=== PATIENT | male | born 1935 | race Caucasian/White ===

== ENCOUNTER 2017-03-21 22:04 | Emergency (ER) | payer MEDICARE ==
[~2017-03-21] VITALS: Ht 177.8 cm; Wt 59.0 kg
[~2017-03-21 22:04] MED LIST: ASP81CT PO; ATEN25TA PO; CLON-378 PO; HCTZ12.5T GT; HYDR-3156 PO; LISI1TAB PO; LISI40TA PO; LOVA20TA2 PO; METO100T2 PO; MTF500T PO; VERA120T6 PO
[2017-03-21] MEDS ORDERED: cefTRIAXone 1 GM (ROCEPHIN) VIAL IM ONE (22:30)
[2017-03-21] MEDS ORDERED: LIDOCAINE 1% INJ 20 ML (XYLOCAINE) VIAL INJ ONE (22:30)
[2017-03-21] MEDS ORDERED: TETANUS,DIPTH,PERTUSS P/F (BOOSTRIX) 0.5 ML VIAL IM ONE (22:30)
--- NOTE | 2017-03-21 22:34 | ED Integumentary General ---
General Chief Complaint: Skin/Wound Problems Stated Complaint: R HAND SCRATCH ON NUCKLE, SWELLING Nursing Triage Note: PT TO ED 5 W/ C/O ABRASION TO RT HAND 1ST KNUCKLE ONSET AT "" THIS EVENING WHILE WORKING ON HIS TRUCK. REPORTS THE SWELLING BEGAN PRIOR TO COMING TO ED. NO OTHER C/O VOICED Source: patient Exam Limitations: no limitations History of Present Illness Time seen by provider: 22:32 Initial Comments To ER with a laceration to the dorsal aspect of the proximal phalanx of the right pointer finger. Patient states that he was working on his truck this evening when he looked down and noticed some blood. He is unsure what exactly he may have scratched this on. He has been swelling at the site and that concerned him Timing/Duration: just prior to arrival Severity: mild Associated Symptoms: denies symptoms Allergies and Home Medications Allergies Coded Allergies: No Known Drug Allergies (Unverified , 10/15/11) Home Medications Aspirin 81 Mg Chew, 81 MG PO DAILY, (Reported) Atenolol 25 Mg Tablet, 25 MG PO BID, (Reported) Hydralazine Hcl 25 Mg Tablet, 1 EACH PO DAILY, (Reported) Hydrochlorothiazide 12.5 Mg Cap, 25 MG GT DAILY, (Reported) Lisinopril 40 Mg Tablet, 40 MG PO BID, (Reported) Lovastatin 20 Mg Tablet, 20 MG PO DAILY, (Reported) Metformin Hcl 500 Mg Tablet, 500 MG PO BID WITH MEALS, (Reported) resume saturday, october 19, 2011 Metoprolol Tartrate 100 Mg Tablet, 100 MG PO BID, (Reported) Verapamil Hcl 120 Mg Tablet, 120 MG PO BID, (Reported) Constitutional: see HPI EENTM: see HPI Respiratory: no symptoms reported Cardiovascular: no symptoms reported Genitourinary: no symptoms reported Musculoskeletal: no symptoms reported Skin: see HPI Psychiatric/Neurological: No Symptoms Reported Endocrine: No Symptoms Reported Past Aarywjc-Sgoaax-Fhksqc Hx Patient Social History Alcohol Use: Occasionally Uses Recreational Drug Use: No Smoking Status: Never a Smoker Recent Foreign Travel: No Contact w/Someone Who Travel: No Recent Infectious Disease Expo: No Recent Hopitalizations: Yes (low blood glucose) Immunizations Up To Date Date of Pneumonia Vaccine: Jul 03, 2011 Date of Influenza Vaccine: Jul 03, 2011 Seasonal Allergies Seasonal Allergies: No Surgeries HX Surgeries: Yes (CAROTID LEFT) Surgeries: Eye Surgery, Tonsillectomy Respiratory Hx Respiratory Disorders: No Cardiovascular Hx Cardiac Disorders: Yes Cardiac Disorders: Hypertension Neurological Hx Neurological Disorders: No Reproductive System Hx Reproductive Disorders: No Genitourinary Hx Genitourinary Disorders: No Gastrointestinal Hx Gastrointestinal Disorders: No Musculoskeletal Hx Musculoskeletal Disorders: Yes Endocrine Hx Endocrine Disorders: Yes Endocrine Disorders: Diabetes, Non-Insulin dep HEENT HX ENT Disorders: Yes HEENT Disorders: Cataract Cancer Hx Cancer: No Psychosocial Hx Psychiatric Problems: No Integumentary HX Skin/Integumentary Disorder: No Blood Transfusions Hx Blood Disorders: No Physical Exam Vital Signs Vital Sign - Last 12Hours 03/21/17 22:11 Temp 97.6 Pulse 64 Resp 20 B/P (MAP) 188/68 Pulse Ox 99 O2 Delivery Room Air Capillary Refill : Less Than 3 Seconds General Appearance: WD/WN, no apparent distress HEENT: PERRL/EOMI, normal ENT inspection Respiratory: no respiratory distress, no accessory muscle use Gastrointestinal: non tender, soft Neurologic/Psychiatric: alert, normal mood/affect, oriented x 3 Skin: normal color, warm/dry Skin Problem Location: upper extremities Skin Problem Character: other (0.5 semi-laceration with depth is a cutaneous tissues to the dorsal aspect of the right pointer finger at the proximal phalanx. There is erythema surrounding this to the mid aspect of the right hand.) Progress/Results/Core Measures Results/Orders My Orders Orders - OLIVA GUZMAN APRN Ceftriaxone Injection (Rocephin Injectio (03/21/17 22:30) Lidocaine 1% Injection (Xylocaine 1% Inj (03/21/17 22:30) Dipht,Pertuss(Acell),Tet Adult (Boostrix (03/21/17 22:30) Vital Signs/I&O Vital Sign - Last 12Hours 03/21/17 22:11 Temp 97.6 Pulse 64 Resp 20 B/P (MAP) 188/68 Pulse Ox 99 O2 Delivery Room Air Blood Pressure Mean: 108 Departure Impression Impression: Primary Impression: Laceration of hand Additional Impression: Erythema of hand Disposition: 01 HOME, SELF-CARE Condition: Stable (all) Departure-Patient Inst. Decision time for Depature: 22:34 Referrals: BUD CONNELLY DO (PCP/Family) Primary Care Physician Patient Instructions: Cellulitis (Skin Infection), Adult (DC) Add. Discharge Instructions: 1. Take and biotics as directed 2. Call Dr. Dr. Connelly tomorrow to make an appointment to be seen 3. Return to ER for any worsening such as increasing redness swelling or fevers All discharge instructions reviewed with patient and/or family. Voiced understanding. Scripts Amoxicillin/Potassium Clav (Augmentin 500-125 Tablet) 1 Each Tablet 1 EACH PO BID, #14 TAB Prov: OLIVA GUZMAN APRN 03/21/17 Copy Copies To 1: BUD CONNELLY PETER J APRN Mar 21, 2017 22:34
[2017-03-21] MEDS ORDERED: AMOX-355 PO (22:35)
[2017-03-21 23:05] VITALS: BP 178/69
== END 2017-03-21 23:05 | disposition home or self-care (01) ==
LOC: EDUNIT# 22:04 → ER 22:06
DX: Z04.3 Encounter for examination and observation following other accident (principal)
CPT/HCPCS: 90471; 90715; 96372; 99284

== ENCOUNTER 2019-10-08 13:16 | Inpatient (IN) | payer MEDICARE ==
[~2019-10-08] VITALS: Ht 167.7 cm; Wt 59.2 kg
[~2019-10-08 13:16] MED LIST changes: +AMOX-355 PO
--- NOTE | 2019-10-08 13:24 | NUR ---
C-COLLAR APPLIED D/T FALL
[2019-10-08] MEDS ORDERED: NS IV 1000 ML 1,000 ML IV ONE (13:38)
--- NOTE | 2019-10-08 14:00 | NUR ---
BACK FROM CT. NO CHANGE IN NIH. O2 APPLIED
[2019-10-08] MEDS ORDERED: LABETALOL HCL 20 MG/4 ML VIAL ONE (14:10)
[2019-10-08] MEDS ORDERED: NS IV 1000 ML 1,000 ML ONE (14:11)
[2019-10-08] MEDS ORDERED: niCARdipine IV FOR DRIP 50 MG KIT ONE (14:11)
[2019-10-08] MEDS ORDERED: NS (IVPB) 250 ML ONE (14:11)
[2019-10-08] MEDS ORDERED: ALTEPLASE 100 MG/VIAL (ACTIVASE) ONE (14:11)
[2019-10-08] MEDS ORDERED: ALTEPLASE 100 MG/VIAL (ACTIVASE) IV ONE (14:15)
[2019-10-08] MEDS ORDERED: niCARdipine IV 50 MG in NS (IVPB) 230 ML IV SCH (14:15)
[2019-10-08] MEDS ORDERED: LABETALOL HCL 20 MG/4 ML VIAL IV ONE (14:15)
[2019-10-08 14:24] LABS: BILIRUBIN,URINE NEGATIVE (NEGATIVE); CLARITY,URINE CLEAR; COLOR,URINE YELLOW; GLUCOSE, URINE (UA) NEGATIVE (NEGATIVE); KETONES,URINE TRACE (NEGATIVE); LEUKOCYTE ESTERASE ,URINE NEGATIVE (NEGATIVE); NITRITE,URINE NEGATIVE (NEGATIVE); PROTEIN,URINE NEGATIVE (NEGATIVE)
--- NOTE | 2019-10-08 14:40 | NUR ---
FAMILY HAS DECIDED TO MAKE PT COMFORT CARE, IV CARDENE AND IV NS DC'D
--- NOTE | 2019-10-08 14:40 | Diagnostic Imaging Report ---
PROCEDURE: CT head wo r/o stroke. TECHNIQUE: Multiple contiguous axial images were obtained through the brain without the use of intravenous contrast. Auto Exposure Controls were utilized during the CT exam to meet ALARA standards for radiation dose reduction. All CT scans use one or more of the following dose optimizing techniques: automated exposure control, MA and/or KvP adjustment based on patient size and exam type or iterative reconstruction. INDICATION: Stroke. COMPARISON: Comparison is made with prior head CT from 09/13/2014. FINDINGS: Hyperdense left MCA is identified suggestive of thrombus within the left middle cerebral artery. No sulcal effacement or midline shift is identified. No acute intra-axial or extra-axial hemorrhage is detected. Cisterns are patent. Visualized paranasal sinuses are clear. IMPRESSION: Hyperdense left MCA, suggestive of left MCA thrombus. CT angiography would be recommended for further evaluation. No acute intracranial hemorrhage is detected. Dictated by: Dictated on workstation # [id number]
[2019-10-08 14:41] LABS: BACTERIA,URINE NEGATIVE /HPF
--- NOTE | 2019-10-08 14:46 | Diagnostic Imaging Report ---
INDICATION: Stroke. Cerebral perfusion study was performed utilizing a rapid software. There is a large volume, approximately 111 mL of 30% reduction in cerebral blood flow to the left cerebral hemisphere. There is also a large volume, approximately 125 mL of delayed transit and prolonged Tmax greater than 6 seconds within the left cerebral hemisphere. Findings are consistent with a large left MCA territory core infarct. No viable penumbra is identified. IMPRESSION: Large left MCA territory core infarct without evidence of viable penumbra. Dictated by: Dictated on workstation # [id number]
[2019-10-08 14:47] LABS: BASOPHILS % (AUTO) 0 % (0-10); EOSINOPHILS % (AUTO) 1 % (0-10); HEMATOCRIT 26 % (40-54); HEMOGLOBIN 8.9 G/DL (13.3-17.7); LYMPHOCYTES # (AUTO) 0.4 X 10^3 (1.0-4.0); LYMPHOCYTES % (AUTO) 5 % (12-44); MEAN CORPUSCULAR HEMOGLOBIN 31 PG (25-34); MEAN CORPUSCULAR HGB CONC 34 G/DL (32-36); MEAN CORPUSCULAR VOLUME 92 FL (80-99); MEAN PLATELET VOLUME 10.1 FL (7.4-10.4); MONOCYTES # (AUTO) 0.6 X 10^3 (0.0-1.0); MONOCYTES % (AUTO) 9 % (0-12); NEUTROPHILS # (AUTO) 5.7 X 10^3 (1.8-7.8); NEUTROPHILS % (AUTO) 85 % (42-75); PLATELET COUNT 138 10^3/uL (130-400); RED CELL DISTRIBUTION WIDTH 13.5 % (10.0-14.5); WHITE BLOOD COUNT 6.7 10^3/uL (4.3-11.0)
--- NOTE | 2019-10-08 14:47 | Diagnostic Imaging Report ---
INDICATION: Possible stroke, fall. TECHNIQUE: Single-view chest, 2:21 p.m. CORRELATION STUDY: 09/13/2014. FINDINGS: Heart size is stable, vascularity does appear to be slightly increased from prior study. Mildly prominent interstitial markings at the lung barfield favoring probable edema. No definitive consolidating infiltrate. IMPRESSION: 1. The heart size is relatively normal, vasculature appears slightly increased, and there is what appears to be a component of interstitial edema. Features raise concern for fluid overload or failure. Dictated by: Dictated on workstation # [id number]
--- NOTE | 2019-10-08 14:47 | Diagnostic Imaging Report ---
PROCEDURE: CT cervical spine without contrast. TECHNIQUE: Multiple contiguous axial images were obtained through the cervical spine without the use of intravenous contrast. Sagittal and coronal reformations were then performed. Auto Exposure Controls were utilized during the CT exam to meet ALARA standards for radiation dose reduction. INDICATION: Fall. Curvature and alignment of the cervical spine is normal. There are severe multilevel degenerative disc disease with disc space narrowing and marginal spurring. Large anterior bridging osteophyte is noted at C4-C5 level. There are hypertrophic facet changes noted. Prevertebral tissues are normal. Odontoid is intact. IMPRESSION: Cervical spondylosis. No acute bony abnormality is detected. Dictated by: Dictated on workstation # [id number]
--- NOTE | 2019-10-08 14:49 | Diagnostic Imaging Report ---
PROCEDURE: CT angiography of the head and CT angiography of the neck with and without contrast. TECHNIQUE: Contiguous noncontrast images were obtained from the skull base through the vertex. After intravenous contrast administration, helical CT angiography of the neck was performed. Source data was reformatted into 3D MIP projections. Delayed post contrast acquisition was also obtained. Auto Exposure Controls were utilized during the CT exam to meet ALARA standards for radiation dose reduction. INDICATION: Stroke. FINDINGS: There are marked atherosclerotic calcifications within the aortic arch. There is a three-vessel branching pattern to the aortic arch. There is calcified plaque in the brachiocephalic, left common carotid, and left subclavian arteries. Both common carotid arteries are heavily calcified. There is moderate stenosis at the right carotid bifurcation and proximal right ICA. The left carotid bifurcation is unremarkable. There appears to be reduced flow in the left internal carotid artery which becomes small caliber particularly at the skull base. No identifiable flow in the left carotid terminus is identified or within the cavernous carotid. No identifiable flow in the left middle cerebral artery M1 or M2 segments is seen. There is flow in the right internal carotid artery as well as the right middle cerebral artery. Distal right ICA is heavily calcified in the cavernous segment. There is flow within bilateral anterior cerebral arteries, likely from cross filling from the anterior communicating artery. Bilateral posterior cerebral arteries are opacified and unremarkable. The basilar artery is unremarkable. A left vertebral artery is dominant. Both vertebral arteries are patent. IMPRESSION: Left MCA occlusion. There is also no identifiable flow in the distal left internal carotid artery which could be owing to poor flow from occluded left MCA. Dictated by: Dictated on workstation # [id number]
[2019-10-08 15:03] LABS: FIBRIN DEGRADATION PRODUCTS 1.36 UG/ML (0.00-0.49); INR 1.1 (0.8-1.4); PROTHROMBIN TIME PATIENT 14.3 SEC (12.2-14.7)
--- NOTE | 2019-10-08 15:03 | ED Neurological Problem ---
General Chief Complaint: Neuro-Stroke Like Symptoms Stated Complaint: STROKE Nursing Triage Note: PT ARRIVED PER EMS PT HAS R SIDED WEAKNESS AND FALL, LAST KNOWN WELL TIME 1200 Nursing Sepsis Screen: No Definite Risk Source: patient Exam Limitations: no limitations History of Present Illness Date Seen by Provider: Oct 08, 2019 Time Seen by Provider: 13:09 Initial Comments This 84-year-old gentleman presents to the emergency room via EMS after being found on the floor in his home by a friend. She had been in the room with him just prior to that and notes that his last known well time was at noon. She walked back into the room and found him on the floor with a flaccid right side and decreased responsiveness. There was no apparent injury and patient denies pain. Right-sided facial droop is noted. Fingerstick blood sugars 127. NIH stroke score is 22 and a stroke activation was paged. Patient has dementia at baseline and requires assistance with daily living at home. Allergies and Home Medications Allergies Coded Allergies: No Known Drug Allergies (Unverified , 10/15/11) Home Medications No Active Prescriptions or Reported Meds Patient Home Medication List Home Medication List Reviewed: Yes Review of Systems Review of Systems Constitutional: no symptoms reported Eyes: No Symptoms Reported Ears, Nose, Mouth, Throat: no symptoms reported Respiratory: no symptoms reported Cardiovascular: no symptoms reported Gastrointestinal: no symptoms reported Genitourinary: no symptoms reported Musculoskeletal: no symptoms reported Skin: no symptoms reported Psychiatric/Neurological: See HPI Endocrine: No Symptoms Reported Hematologic/Lymphatic: No Symptoms Reported Past Poygflb-Xrnbjy-Obpuzg Hx Past Med/Social Hx: Reviewed and Corrections made Patient Social History Alcohol Use: Denies Use Recreational Drug Use: No Smoking Status: Unknown if Ever Smoked Recent Foreign Travel: No Contact w/Someone Who Travel: No Recent Infectious Disease Expo: No Recent Hopitalizations: Yes (low blood glucose) Physical Abuse: No Sexual Abuse: No Immunizations Up To Date Date of Pneumonia Vaccine: Jul 03, 2011 Date of Influenza Vaccine: Jul 03, 2011 Seasonal Allergies Seasonal Allergies: No Past Medical History Surgeries: Yes (CAROTID LEFT) Eye Surgery, Tonsillectomy Respiratory: No Cardiac: Yes Hypertension Neurological: Yes Dementia Reproductive Disorders: No Gastrointestinal: No Musculoskeletal: Yes Endocrine: Yes Diabetes, Non-Insulin dep Cataract Cancer: No Psychosocial: No Integumentary: No Blood Disorders: No Physical Exam Vital Signs Vital Signs - First Documented 10/08/19 13:19 Temp 36.8 Pulse 90 Resp 19 B/P (MAP) 190/80 (116) Capillary Refill : Less Than 3 Seconds Height, Weight, BMI Height: 5'10.00" Weight: 130lbs. oz. 58.357616ic; 24.00 BMI Method:Stated General Appearance: WD/WN, no apparent distress HEENT: PERRL/EOMI, normal ENT inspection Neck: non-tender, normal inspection Respiratory: lungs clear, normal breath sounds, no respiratory distress, no accessory muscle use Cardiovascular: regular rate, rhythm, no edema, systolic murmur Gastrointestinal: normal bowel sounds, non tender, soft Extremities: non-tender, normal inspection Neurologic/Psychiatric: alert, normal mood/affect, motor weakness (Right side), sensory deficit (Right side) Crainal Nerves: normal hearing, abnormal speech, facial asymmetry, facial droop Skin: normal color, warm/dry Stroke NIH Stroke Scale Assessment Level of Consciousness: 2=By repeated stimulation (2), Level of Consciousness-Questions: 2=Answer neither question (2), LOC Commands: 0=Performs both tasks (0), Visual Fernández: 0=No visual loss (0), Facial Movement (Facial Paresis): 1=Minor paralysis (1), Motor Function-Arms Right: 4=No movement (4), Motor Function-Arms Left: 0=No drift (0), Motor Function- Legs Right: 4=No movement (4), Motor Function-Legs Left: 0=No drift (0), Limb Ataxia: 1=Present in one limb (1), Sensory: 2=Severe to total loss (2), Best Language: 2=Severe aphasia (2), Dysarthria: 1=Mild to moderate loss (1), Extinction & Inattention: 2=ProfoundHemiInattention (2), Total: 21 IV - TPa Received IV - TPa Procedure Performed?: No Progress/Results/Core Measures Results/Orders Lab Results Laboratory Tests Test 10/08/19 14:10 10/08/19 14:40 Range/Units Urine Color YELLOW Urine Clarity CLEAR Urine pH 7.0 5-9 Urine Specific [place] 1.010 L 1.016-1.022 Urine Protein NEGATIVE NEGATIVE Urine Glucose (UA) NEGATIVE NEGATIVE Urine Ketones TRACE H NEGATIVE Urine Nitrite NEGATIVE NEGATIVE Urine Bilirubin NEGATIVE NEGATIVE Urine Urobilinogen 0.2 < = 1.0 MG/DL Urine Leukocyte Esterase NEGATIVE NEGATIVE Urine RBC (Auto) 2+ H NEGATIVE Urine RBC 5-10 H /HPF Urine WBC NONE /HPF Urine Squamous Epithelial Cells NONE /HPF Urine Crystals NONE /LPF Urine Bacteria NEGATIVE /HPF Urine Casts NONE /LPF Urine Mucus NEGATIVE /LPF Urine Culture Indicated NO White Blood Count 6.7 4.3-11.0 10^3/uL Red Blood Count 2.85 L 4.35-5.85 10^6/uL Hemoglobin 8.9 L 13.3-17.7 G/DL Hematocrit 26 L 40-54 % Mean Corpuscular Volume 92 80-99 FL Mean Corpuscular Hemoglobin 31 25-34 PG Mean Corpuscular Hemoglobin Concent 34 32-36 G/DL Red Cell Distribution Width 13.5 10.0-14.5 % Platelet Count 138 130-400 10^3/uL Mean Platelet Volume 10.1 7.4-10.4 FL Neutrophils (%) (Auto) 85 H 42-75 % Lymphocytes (%) (Auto) 5 L 12-44 % Monocytes (%) (Auto) 9 0-12 % Eosinophils (%) (Auto) 1 0-10 % Basophils (%) (Auto) 0 0-10 % Neutrophils # (Auto) 5.7 1.8-7.8 X 10^3 Lymphocytes # (Auto) 0.4 L 1.0-4.0 X 10^3 Monocytes # (Auto) 0.6 0.0-1.0 X 10^3 Eosinophils # (Auto) 0.0 0.0-0.3 10^3/uL Basophils # (Auto) 0.0 0.0-0.1 10^3/uL Neutrophils % (Manual) 87 % Lymphocytes % (Manual) 4 % Monocytes % (Manual) 7 % Eosinophils % (Manual) 0 % Basophils % (Manual) 2 % Band Neutrophils 0 % Blood Morphology Comment NORMAL Prothrombin Time 14.3 12.2-14.7 SEC INR Comment 1.1 0.8-1.4 Activated Partial Thromboplast Time 33 24-35 SEC D-Dimer 1.36 H 0.00-0.49 UG/ML Sodium Level 132 L 135-145 MMOL/L Potassium Level 2.8 L 3.6-5.0 MMOL/L Chloride Level 98 98-107 MMOL/L Carbon Dioxide Level 25 21-32 MMOL/L Anion Gap 9 5-14 MMOL/L Blood Urea Nitrogen 13 7-18 MG/DL Creatinine 0.78 0.60-1.30 MG/DL Estimat Glomerular Filtration Rate > 60 BUN/Creatinine Ratio 17 Glucose Level 119 H 70-105 MG/DL Calcium Level 8.7 8.5-10.1 MG/DL Corrected Calcium 9.2 8.5-10.1 MG/DL Total Bilirubin 0.5 0.1-1.0 MG/DL Aspartate Amino Transf (AST/SGOT) 31 5-34 U/L Alanine Aminotransferase (ALT/SGPT) 27 0-55 U/L Alkaline Phosphatase 60 40-136 U/L Troponin I 1.096 *H <0.028 NG/ML Total Protein 5.8 L 6.4-8.2 GM/DL Albumin 3.4 3.2-4.5 GM/DL My Orders Orders - JAYANT CAZARES MD Cbc With Automated Diff (10/08/19 13:28) Protime With Inr (10/08/19 13:28) Partial Thromboplastin Time (10/08/19 13:28) Comprehensive Metabolic Panel (10/08/19 13:28) Fibrin Degradation Products (10/08/19 13:28) Troponin I (10/08/19 13:28) Ua Culture If Indicated (10/08/19 13:28) Chest 1 View, Ap/Pa Only (10/08/19 13:28) Catheter(Urinary) Insert & Ass 03,15 (10/08/19 13:28) Ekg Tracing (10/08/19 13:28) Nothing By Mouth (10/08/19 Dinner) Accucheck Stat ONCE (10/08/19 13:28) Ed Iv/Invasive Line Start (10/08/19 13:28) Ed Iv/Invasive Line Start (10/08/19 13:28) Vital Signs Stroke Patient Q15M (10/08/19 13:28) Ct Head Wo-R/O Stroke (10/08/19 13:28) O2 (10/08/19 13:28) Intake & Output 06,14,22 (10/08/19 13:28) Monitor-Rhythm Ecg Trace Only (10/08/19 13:28) Dysphagia Screening Tool (10/08/19 13:28) Post Thrombolytic Adminstratio (10/08/19 13:28) Ct Cervical Spine Wo (10/08/19 13:32) Ct Angio Head/Neck (10/08/19 13:37) Ct Head Perfusion W/ Contrast (10/08/19 13:37) Ns Iv 1000 Ml (Sodium Chloride 0.9%) (10/08/19 13:38) Labetalol Injection (Normodyne Injection (10/08/19 14:15) Ns (Ivpb) (Sodium C... W/Nicardipine Iv (10/08/19 14:15) Alteplase (Activase) (Activase Injection (10/08/19 14:15) Post Thrombolytic Adminstratio (10/08/19 14:08) Manual Differential (10/08/19 14:40) Medications Given in ED Vital Signs/I&O 10/08/19 13:19 Temp 36.8 Pulse 90 Resp 19 B/P (MAP) 190/80 (116) Blood Pressure Mean: 116 FSBG Bedside Testing Finger Stick Blood Glucose: 127 Blood Glucose Action Taken: EMS Progress Progress Note : Time: 15:00 Progress Note Stroke activation was paged upon patient's arrival and he was promptly taken to CT. C-collar was applied since we did not know the nature of his fall or collapse. C-collar was removed after review of CT cervical spine. NIH stroke score was 22 with fairly profound right-sided deficits including flaccid ext remities. CT imaging showed no evidence of mass or intracranial hemorrhaging. This was followed with CT angiogram and CT perfusion imaging. This showed a large volume stroke on the left hemisphere with total volume greater than 100 mL with virtually no penumbra. After lengthy discussions with family including patient's son Dylan and his sister Logan Tam as well as Dr. Fitzgerald, stroke neurologist at [facility], it was eventually determined that patient should be admitted to [facility] for comfort care. Both Dylan and Logan were fairly certain patient would not want extensive measures such as IR therapy, TPA, or helicopter transportation. Once the results of perfusion imaging were known, they elected comfort care (no TPA and no transfer) as patient's baseline is already poor with advancing dementia. He has been unable to care for himself recently and was requiring significant help in the home. Dr. Fitzgerald and Dr. Infante (radiologist) were in agreement that comfort care is a reasonable option. Dr. Infante believes that this was a largely nonrecoverable stroke. Dr. Fitzgerald quotes a 30 percent chance or loss of having any neurological recovery with TPA alone. I discussed the case with Dr. Connelly who agreed with admission and comfort care. Although lab work did not ultimately play a role in decision for comfort care, he was found to have significant hypokalemia and elevated troponin with ST depression on EKG. These findings further support the decision for comfort care. Initial ECG Impression Date: Oct 08, 2019 Initial ECG Impression Time: 14:04 Initial ECG Rate: 94 Comment Sinus rhythm with right bundle branch block. No ST elevation or ST depression present in multiple leads. Diagnostic Imaging Diagonstic Imaging: CT Plain Films/CT/US/NM/MRI: head Comments CT head viewed by me and report reviewed. See report below: NAME: NIXON WELCH [facility] REC#: [id number] PT STATUS: ADM IN : 1935 PHYSICIAN: JAYANT CAZARES MD ADMIT DATE: 10/08/19 Signed Date of Exam:10/08/19 CT HEAD WO-R/O STROKE PROCEDURE: CT head wo r/o stroke. TECHNIQUE: Multiple contiguous axial images were obtained through the brain without the use of intravenous contrast. Auto Exposure Controls were utilized during the CT exam to meet ALARA standards for radiation dose reduction. All CT scans use one or more of the following dose optimizing techniques: automated exposure control, MA and/or KvP adjustment based on patient size and exam type or iterative reconstruction. INDICATION: Stroke. COMPARISON: Comparison is made with prior head CT from 09/13/2014. FINDINGS: Hyperdense left MCA is identified suggestive of thrombus within the left middle cerebral artery. No sulcal effacement or midline shift is identified. No acute intra-axial or extra-axial hemorrhage is detected. Cisterns are patent. Visualized paranasal sinuses are clear. IMPRESSION: Hyperdense left MCA, suggestive of left MCA thrombus. CT angiography would be recommended for further evaluation. No acute intracranial hemorrhage is detected. Dictated by: Dictated on workstation # [id number] Dict: 10/08/19 1437 Trans: 10/08/19 1606 [facility] [id number] Interpreted by: LOREE INFANTE MD Electronically signed by: LOREE INFANTE MD 10/08/19 1606 Reviewed: Reviewed by Me, Discussed w/Radiologist Diagonstic Imaging: Xray Plain Films/CT/US/NM/MRI: chest Comments NAME: NIXON WELCH [facility] REC#: [id number] PT STATUS: ADM IN : 1935 PHYSICIAN: JAYANT CAZARES MD ADMIT DATE: 10/08/19 Signed Date of Exam:10/08/19 CHEST 1 VIEW, AP/PA ONLY INDICATION: Possible stroke, fall. TECHNIQUE: Single-view chest, 2:21 p.m. CORRELATION STUDY: 09/13/2014. FINDINGS: Heart size is stable, vascularity does appear to be slightly increased from prior study. Mildly prominent interstitial markings at the lung fernández favoring probable edema. No definitive consolidating infiltrate. IMPRESSION: 1. The heart size is relatively normal, vasculature appears slightly increased, and there is what appears to be a component of interstitial edema. Features raise concern for fluid overload or failure. Dictated by: Dictated on workstation # [id number] Dict: 10/08/19 1443 Trans: 10/08/19 1652 [id number] Interpreted by: YOBANY GAMBLE DO Electronically signed by: YOBANY GAMBLE DO 10/08/19 1652 Reviewed: Reviewed by Me Diagonstic Imaging: CT Plain Films/CT/US/NM/MRI: c-spine Comments CT viewed by me and report reviewed. See report below: NAME: NIXON WELCH [facility] REC#: [id number] PT STATUS: ADM IN : 1935 PHYSICIAN: JAYANT CAZARES MD ADMIT DATE: 10/08/19 Signed Date of Exam:10/08/19 CT CERVICAL SPINE WO PROCEDURE: CT cervical spine without contrast. TECHNIQUE: Multiple contiguous axial images were obtained through the cervical spine without the use of intravenous contrast. Sagittal and coronal reformations were then performed. Auto Exposure Controls were utilized during the CT exam to meet ALARA standards for radiation dose reduction. INDICATION: Fall. Curvature and alignment of the cervical spine is normal. There are severe multilevel degenerative disc disease with disc space narrowing and marginal spurring. Large anterior bridging osteophyte is noted at C4-C5 level. There are hypertrophic facet changes noted. Prevertebral tissues are normal. Odontoid is intact. IMPRESSION: Cervical spondylosis. No acute bony abnormality is detected. Dictated by: Dictated on workstation # [id number] Dict: 10/08/19 1444 Trans: 10/08/19 1605 [place] [id number] Interpreted by: LOREE INFANTE MD Electronically signed by: LOREE INFANTE MD 10/08/19 1609 Diagonstic Imaging: CT Plain Films/CT/US/NM/MRI: other (CT angiogram head and neck) Comments CT angiogram head and neck viewed by me and report reviewed. Discussed and reviewed with the radiologist. See report below: NAME: NIXON WELCH [facility] REC#: [id number] PT STATUS: ADM IN : 1935 PHYSICIAN: JAYANT CAZARES MD ADMIT DATE: 10/08/19 Signed Date of Exam:10/08/19 CT ANGIO HEAD/NECK PROCEDURE: CT angiography of the head and CT angiography of the neck with and without contrast. TECHNIQUE: Contiguous noncontrast images were obtained from the skull base through the vertex. After intravenous contrast administration, helical CT angiography of the neck was performed. Source data was reformatted into 3D MIP projections. Delayed post contrast acquisition was also obtained. Auto Exposure Controls were utilized during the CT exam to meet ALARA standards for radiation dose reduction. INDICATION: Stroke. FINDINGS: There are marked atherosclerotic calcifications within the aortic arch. There is a three-vessel branching pattern to the aortic arch. There is calcified plaque in the brachiocephalic, left common carotid, and left subclavian arteries. Both common carotid arteries are heavily calcified. There is moderate stenosis at the right carotid bifurcation and proximal right ICA. The left carotid bifurcation is unremarkable. There appears to be reduced flow in the left internal carotid artery which becomes small caliber particularly at the skull base. No identifiable flow in the left carotid terminus is identified or within the cavernous carotid. No identifiable flow in the left middle cerebral artery M1 or M2 segments is seen. There is flow in the right internal carotid artery as well as the right middle cerebral artery. Distal right ICA is heavily calcified in the cavernous segment. There is flow within bilateral anterior cerebral arteries, likely from cross filling from the anterior communicating artery. Bilateral posterior cerebral arteries are opacified and unremarkable. The basilar artery is unremarkable. A left vertebral artery is dominant. Both vertebral arteries are patent. IMPRESSION: Left MCA occlusion. There is also no identifiable flow in the distal left internal carotid artery which could be owing to poor flow from occluded left MCA. Dictated by: Dictated on workstation # [id number] Dict: 10/08/19 1441 Trans: 10/08/19 160 [place] [id number] Interpreted by: LOREE INFANTE MD Electronically signed by: LOREE INFANTE MD 10/08/191604 Reviewed: Reviewed by Me, Discussed w/Radiologist Diagonstic Imaging: CT Plain Films/CT/US/NM/MRI: head (CT perfusion scan) Comments CT perfusion scan discussed with radiologist. See report below: NAME: NIXON WELCH [facility] REC#: [id number] PT STATUS: ADM IN : 1935 PHYSICIAN: JAYANT CAZARES MD ADMIT DATE: 10/08/19 Signed Date of Exam:10/08/19 CT HEAD PERFUSION W/ CONTRAST INDICATION: Stroke. Cerebral perfusion study was performed utilizing a rapid software. There is a large volume, approximately 111 mL of 30% reduction in cerebral blood flow to the left cerebral hemisphere. There is also a large volume, approximately 125 mL of delayed transit and prolonged Tmax greater than 6 seconds within the left cerebral hemisphere. Findings are consistent with a large left MCA territory core infarct. No viable penumbra is identified. IMPRESSION: Large left MCA territory core infarct without evidence of viable penumbra. Dictated by: Dictated on workstation # [id number] Dict: 10/08/19 1438 Trans: 10/08/191605 [place] [id number] Interpreted by: LOREE INFANTE MD Electronically signed by: LOREE INFANTE MD 10/08/191605 Reviewed: Reviewed by Me, Discussed w/Radiologist Departure Communication (Admissions) Time/Spoke to Admitting Phy: 14:50 Dr. 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 Referrals: BUD CONNELLY DO (PCP/Family) Primary Care Physician Scripts No Active Prescriptions or Reported Meds JAYANT CAZARES MD Oct 08, 2019 15:03
[2019-10-08 15:05] LABS: BAND NEUTROPHILS 0 %; BASOPHILS % (MANUAL) 2 %; EOSINOPHILS % (MANUAL) 0 %; LYMPHOCYTES % (MANUAL) 4 %; MONOCYTES % (MANUAL) 7 %; NEUTROPHILS % (MANUAL) 87 %; RBC MORPH NORMAL
[2019-10-08 15:08] LABS: ALANINE AMINOTRANSFERASE 27 U/L (0-55); ALBUMIN 3.4 GM/DL (3.2-4.5); ALKALINE PHOSPHATASE 60 U/L (40-136); BILIRUBIN,TOTAL 0.5 MG/DL (0.1-1.0); BUN/CREATININE RATIO 17; CALCIUM 8.7 MG/DL (8.5-10.1); CARBON DIOXIDE 25 MMOL/L (21-32); CHLORIDE 98 MMOL/L (98-107); CREATININE SERUM 0.78 MG/DL (0.60-1.30); GFR ESTIMATED > 60; GLUCOSE 119 MG/DL (70-105); POTASSIUM 2.8 MMOL/L (3.6-5.0); SODIUM 132 MMOL/L (135-145); TOTAL PROTEIN 5.8 GM/DL (6.4-8.2)
--- NOTE | 2019-10-08 15:30 | NUR ---
INXON WELCH admitted to room 404-1, with an admitting diagnosis of STROKE/ COMFORT CARE, on 10/08/19 from ED, accompanied by SISTER AND SON.NIXON WELCH 'S FAMILY introduced to surroundings, call light, bed controls, phone, TV, temperature control, lights, meal times, smoking policy, visitor policy, side rail policy, bathrooms and showers. Patient Rights given to patient in the handbook. NIXON WELCH'S FAMILY verbalizes understanding that [facility] is not responsible for the loss or damage to any personal effects or valuables that are kept in the patients posession during their hospitalization. The following Patient Care Plans were discussed with the PATIENT'S FAMILY: Discharge Planning, COMFORT CARE,PAIN , and SPIRITUAL SUPPORT. NIXON WELCH verbalizes understanding of Interdisciplinary Patient Education.
--- NOTE | 2019-10-08 15:30 | NUR ---
REPORT CALLED BY SONNY SALINAS RN
[2019-10-08 16:43] VITALS: BP 219/87
[2019-10-08 16:57] VITALS: BP 219/87
[2019-10-08] MEDS ORDERED: PROMETHAZINE INJ 25 MG/ML (PHENERGAN) AMP IVP PRN (18:00)
[2019-10-08] MEDS ORDERED: ATROPINE 1% OPHTHALMIC SOLN 2 ML SL PRN (18:00)
[2019-10-08] MEDS ORDERED: LORazepam ORAL CONCENTRATE 2 MG/ML 30 ML (ATIVAN) PO PRN (18:00)
[2019-10-08] MEDS ORDERED: ONDANSETRON 4 MG/2 ML (SDV) Z0FRAN IVP PRN (18:00)
[2019-10-08] MEDS ORDERED: GLYCOPYRROLATE 0.2 MG/ML (ROBINUL) 2 ML VIAL IV PRN (18:00)
[2019-10-08] MEDS ORDERED: RT-ALBUTEROL/IPRATROPIUM 3 ML (DUONEB) VIAL INH PRN (18:00)
[2019-10-08] MEDS: SCOPOLAMINE 1.5 MG (TRANSDERM-SCOP) PATCH TOP SCH (18:30)
--- NOTE | 2019-10-08 18:54 | History & Physical ---
History of Present Illness History of Present Illness Reason for visit/HPI Right sided weakness and paralysis and fall. Patient by EMS brought out to the emergency room. Patient had a significant stroke. Patient has dementia. Patient recently going downhill. Patient wanted to not have anything down. Family decided on comfort care. Patient has anemia, malignant hypertension, elevated troponin, hyperkalemia, left MCA thrombus, CHF, dementia Date of Admission Oct 08, 2019 at 14:52 Time Seen by a Provider: 18:52 I consulted on this patient on 10/08/19 18:45 Attending Physician Yordan Connelly DO Admitting Physician Yordan Connelly DO Consult Allergies and Home Medications Allergies Coded Allergies: No Known Drug Allergies (Unverified , 10/15/11) Home Medications Amoxicillin/Potassium Clav 1 Each Tablet, 1 EACH PO BID Prescribed by: OLIVA GUZMAN on 03/21/172234 Aspirin 81 Mg Chew, 81 MG PO DAILY, (Reported) Atenolol 25 Mg Tablet, 25 MG PO BID, (Reported) Hydralazine Hcl 25 Mg Tablet, 1 EACH PO DAILY, (Reported) Hydrochlorothiazide 12.5 Mg Cap, 25 MG GT DAILY, (Reported) Lisinopril 40 Mg Tablet, 40 MG PO BID, (Reported) Lovastatin 20 Mg Tablet, 20 MG PO DAILY, (Reported) Metformin Hcl 500 Mg Tablet, 500 MG PO BID WITH MEALS, (Reported) resume wednesday, october 19, 2011 Metoprolol Tartrate 100 Mg Tablet, 100 MG PO BID, (Reported) Verapamil Hcl 120 Mg Tablet, 120 MG PO BID, (Reported) Patient Home Medication List Home Medication List Reviewed: No Past Lfzirim-Ncrjjj-Btvlxr Hx Past Med/Social Hx: Reviewed Nursing Past Med/Soc Hx Patient Social History Employed/Student: retired Alcohol Use: Denies Use Recreational Drug Use: No Smoking Status: Unknown if Ever Smoked Recent Foreign Travel: No Contact w/other who traveled: No Recent Hopitalizations: Yes (low blood glucose) Recent Infectious Disease Expo: No Immunizations Up To Date Date of Pneumonia Vaccine: Jul 03, 2011 Date of Influenza Vaccine: Jul 03, 2011 Seasonal Allergies Seasonal Allergies: No Past Medical History Surgeries: Eye Surgery, Tonsillectomy Cardiac: Hypertension Reproductive: No Endocrine: Diabetes, Non-Insulin dep HEENT: Cataract History of Blood Disorders: No Review of Systems Constitutional: weakness Physical Exam Vital Signs Vital Signs - First Documented 10/08/19 10/08/19 13:19 15:19 Temp 36.8 Pulse 90 Resp 19 B/P (MAP) 190/80 (116) Pulse Ox 99 O2 Delivery Simple Mask O2 Flow Rate 4.00 Capillary Refill : Less Than 3 SecondsLess Than 3 Seconds Height, Weight, BMI Height: 5'10.00" Weight: 130lbs. oz. 58.059874py; 21.08 BMI Method:Stated General Appearance: No Apparent Distress, Thin HEENT: Normal ENT Inspection Neck: Normal Inspection Respiratory: No Accessory Muscle Use, No Respiratory Distress, Decreased Breath Sounds Cardiovascular: Regular Rate, Rhythm, No Murmur Gastrointestinal: Non Tender, Soft Assessment/Plan Assessment and Plan Acute CVA. Right sided paralysis. AMS. Malignant hypertension. Anemia. Elevated troponin. Left MCA thrombus. CHF. Dementia Right sided weakness. fall Admission Diagnosis Admission Status: Inpatient Order (span 2 midnights) Reason for Inpatient Admission: Comfort care. Acute CVA. Elevated troponin area Dementia. Malignant hypertension Clinical Quality Measures DVT/VTE Risk/Contraindication: Risk Factor Score Per Nursin RFS Level Per Nursing on Admit: 4+=Very High YORDAN CONNELLY DO Oct 08, 2019 18:54
[2019-10-09] MEDS: LORazepam INJ 2 MG/ML (ATIVAN) VIAL IVP PRN ×4 (01:22→23:04)
--- NOTE | 2019-10-09 07:38 | Progress Note ---
Subjective Time Seen by a Provider: 07:27 Subjective/Events-last exam Patient comfortable this morning. Spoke to sister this morning. Patient has dementia and getting worse. Patient did talk during the night. Sister stated patient move the right leg. Has Babinski on right. Patient comfort care Objective Exam Vital Signs Date Time Temp Pulse Resp B/P (MAP) Pulse Ox O2 Delivery O2 Flow Rate FiO2 10/08/19 20:00 OxyMask 2.00 10/08/19 16:57 37.0 88 15 219/87 (131) 98 OxyMask 1.00 10/08/19 16:43 37.0 88 15 219/87 98 OxyMask 1.00 10/08/19 16:43 88 15 219/ 98 10/08/19 16:22 99 Simple Mask 4.00 10/08/19 15:19 84 19 170/89 (116) 99 Simple Mask 4.00 10/08/19 13:19 36.8 90 19 190/80 (116) I & O 10/09/19 07:00 Intake Total 112 ml Output Total 1650 ml Balance -1538 ml Capillary Refill : Less Than 3 SecondsLess Than 3 Seconds General Appearance: No Apparent Distress, WD/WN Neck: Normal Inspection Respiratory: Lungs Clear, No Accessory Muscle Use, No Respiratory Distress Cardiovascular: Regular Rate, Rhythm, No Murmur Gastrointestinal: non tender, soft Results Lab Laboratory Tests 10/08/19 14:10: Urine Color YELLOW, Urine Clarity CLEAR, Urine pH 7.0, Urine Specific Carlton 1.010L, Urine Protein NEGATIVE, Urine Glucose (UA) NEGATIVE, Urine Ketones TRACEH, Urine Nitrite NEGATIVE, Urine Bilirubin NEGATIVE, Urine Urobilinogen 0.2, Urine Leukocyte Esterase NEGATIVE, Urine RBC (Auto) 2+H, Urine RBC 5-10H, Urine WBC NONE, Urine Squamous Epithelial Cells NONE, Urine Crystals NONE, Urine Bacteria NEGATIVE, Urine Casts NONE, Urine Mucus NEGATIVE, Urine Culture Indicated NO 10/08/19 14:40: White Blood Count 6.7, Red Blood Count 2.85L, Hemoglobin 8.9L, Hematocrit 26L, Mean Corpuscular Volume 92, Mean Corpuscular Hemoglobin 31, Mean Corpuscular Hemoglobin Concent 34, Red Cell Distribution Width 13.5, Platelet Count 138, Mean Platelet Volume 10.1, Neutrophils (%) (Auto) 85H, Lymphocytes (%) (Auto) 5L , Monocytes (%) (Auto) 9, Eosinophils (%) (Auto) 1, Basophils (%) (Auto) 0, Neutrophils # (Auto) 5.7, Lymphocytes # (Auto) 0.4L, Monocytes # (Auto) 0.6, Eosinophils # (Auto) 0.0, Basophils # (Auto) 0.0, Neutrophils % (Manual) 87, Lymphocytes % (Manual) 4, Monocytes % (Manual) 7, Eosinophils % (Manual) 0, Basophils % (Manual) 2, Band Neutrophils 0, Blood Morphology Comment NORMAL, Prothrombin Time 14.3, INR Comment 1.1, Activated Partial Thromboplast Time 33, D-Dimer 1.36H, Sodium Level 132L, Potassium Level 2.8L, Chloride Level 98, Car bon Dioxide Level 25, Anion Gap 9, Blood Urea Nitrogen 13, Creatinine 0.78, Estimat Glomerular Filtration Rate > 60, BUN/Creatinine Ratio 17, Glucose Level 119H, Calcium Level 8.7, Corrected Calcium 9.2, Total Bilirubin 0.5, Aspartate Amino Transf (AST/SGOT) 31, Alanine Aminotransferase (ALT/SGPT) 27, Alkaline Phosphatase 60, Troponin I 1.096*H, Total Protein 5.8L, Albumin 3.4 10/08/19 16:45: Glucometer 133H Assessment/Plan Assessment/Plan Assess & Plan/Chief Complaint Acute CVA. Patient comfort care. Right sided paralysis. Elevated troponin. Dementia. Clinical Quality Measures Admission Status Admission Dx Acute CVA. Right sided paralysis. AMS. Malignant hypertension. Anemia. Elevated troponin. Left MCA thrombus. CHF. Dementia Right sided weakness. fall DVT/VTE Risk/Contraindication: Risk Factor Score Per Nursin RFS Level Per Nursing on Admit: 4+=Very High BUD CONNELLY DO Oct 09, 2019 07:37
[2019-10-09] MEDS ORDERED: FURO40TA4 PO (10:05)
[2019-10-09] MEDS ORDERED: METF500T19 PO (10:05)
[2019-10-09] MEDS ORDERED: LISI40TA PO (10:05)
[2019-10-09] MEDS ORDERED: VERA120T6 PO (10:05)
--- NOTE | 2019-10-09 10:40 | NUR ---
Pastoral care visit w/pts sister at bedside. She shared much of the pts life journey, I provided listening and support. She advised that the pts son had deferred pastoral care in the ER.
--- NOTE | 2019-10-09 11:12 | NUR ---
GOT MED LIST FROM [facility] AND SPOKE WITH THE [facility] OFFICE TO COMPLETE THE MED REC. PT WENT ON COMFORT CARE BEFORE I HAD FINISHED THE MED REC. METOPROLOL TART AND SIMVASTATIN WERE ACTIVE MEDS AT THE OFFICE BUT [facility] HAD NOT FILLED THEM SINCE MAY 2019. I LEFT THESE OFF THE MED REC AND REVIEWED WHAT HE HAD PICKED UP RECENTLY
--- NOTE | 2019-10-09 14:03 | NUR ---
PALLIATIVE CARE RN in to see patient's son and sister to talk about POC for this patient. Patient has had a massive CVA and is on [facility] this admission. He is mostly unresponsive and unable. Told the family that it is anticipated that the patient will continue to decline over the next 24-72 hours and that if he stabilizes that we would be looking at discharge to SNF with hospice. He will be here through the weekend. Patient does have some periods of alertness and following commands. He is, however, having apneic episode fairly regularly. He occasionally gets uncomfortable evidenced by movements of his upper extremity, moaning verbalizations and furrowing of the brows. He has gotten a couple doses of comfort medications. Comfort will need to be closely monitored and addressed as needed. Oral care to be completed with q 2hour position changes. On Saturday will reassess for needs if he is still alive.
[2019-10-10] MEDS: LORazepam INJ 2 MG/ML (ATIVAN) VIAL IVP PRN ×2 (12:04→20:30)
--- NOTE | 2019-10-10 13:12 | Progress Note ---
Subjective Subjective Date Seen by Provider: Oct 10, 2019 Time Seen by Provider: 11:00 84 yo M with recent embolic stroke- on comfort care- Since yesterday he tried to get up and pull his neal out with his good left side. He has calmed down since then. When aides repositioned him this morning he went apneic for a few seconds. Currently comfortable in his bed, no respiratory distress. Review of Systems ROS Unable to Obtain: asleep- dementia- able to squeeze with left hand. Objective Exam Vital Signs Vital Signs Date Time Temp Pulse Resp B/P (MAP) Pulse Ox O2 Delivery O2 Flow Rate FiO2 10/10/19 08:00 98 Room Air 2.00 10/09/19 20:00 Room Air 10/09/19 20:00 Room Air I & O 10/10/19 07:00 Intake Total 0 ml Output Total 1075 ml Balance -1075 ml General Appearance: No Apparent Distress Neck: Normal Inspection Respiratory: Lungs Clear, No Accessory Muscle Use, No Respiratory Distress Cardiovascular: Regular Rate, Rhythm Gastrointestinal: Non Tender, Soft Assessment/Plan Assessment/Plan Assessment and Plan 10/10/19- continue comfort care- currently in no distress. 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
[2019-10-11] MEDS: LORazepam INJ 2 MG/ML (ATIVAN) VIAL IVP PRN ×2 (00:36→20:11)
[2019-10-11] MEDS: morphine INJ 4 MG/ML 1 ML (VIAL/SYRINGE) IV PRN (06:16)
--- NOTE | 2019-10-11 06:43 | NUR ---
THIS RN PULLED ATIVAN 1MG IV AND WASTED 1MG WITH LALITO RN FOR PT THIS AM. AFTER SPEAKING WITH FAMILY, IT WAS DECIDED THAT PT WOULD BENEFIT FROM PAIN MEDICATION. THIS RN AND JACKELIN STARKEY DOCUMENTED WASTING THE REMAINING 1MG OF ATIVAN IN OMNICELL, DISPOSED OF IT, AND DID A NARC COUNT TOGETHER. NO DISCREPANCIES PRINTED.
--- NOTE | 2019-10-11 11:05 | Progress Note ---
Subjective Subjective Date Seen by Provider: Oct 11, 2019 Time Seen by Provider: 08:50 84 yo M resting comfortable- not much response- Review of Systems ROS Unable to Obtain: asleep- dementia- able to squeeze with left hand. Objective Exam Vital Signs Vital Signs - First Documented 10/08/19 10/08/19 13:19 15:19 Temp 36.8 Pulse 90 Resp 19 B/P (MAP) 190/80 (116) Pulse Ox 99 O2 Delivery Simple Mask O2 Flow Rate 4.00 Capillary Refill : Less Than 3 SecondsLess Than 3 Seconds General Appearance: No Apparent Distress Neck: Normal Inspection Respiratory: Lungs Clear, No Accessory Muscle Use, No Respiratory Distress Cardiovascular: Regular Rate, Rhythm Gastrointestinal: Non Tender, Soft Assessment/Plan Assessment/Plan Assessment and Plan 10/10/19- continue comfort care- currently in no distress. Will continue to monitor 10/11/2019- comfort care. 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
[2019-10-11] MEDS: SCOPOLAMINE 1.5 MG (TRANSDERM-SCOP) PATCH TOP SCH (18:48)
--- NOTE | 2019-10-12 07:13 | Progress Note ---
Subjective Time Seen by a Provider: 07:11 Subjective/Events-last exam Spoke to family. Patient less responsive. Is not responding Objective Exam Vital Signs Date Time Temp Pulse Resp B/P (MAP) Pulse Ox O2 Delivery O2 Flow Rate FiO2 10/11/19 20:00 Room Air 10/11/19 09:04 Room Air 10/11/19 07:53 Room Air I & O 10/12/19 07:00 Intake Total 0 ml Output Total 515 ml Balance -515 ml Capillary Refill : Less Than 3 SecondsLess Than 3 Seconds General Appearance: No Apparent Distress Respiratory: Lungs Clear, No Accessory Muscle Use, No Respiratory Distress Cardiovascular: Regular Rate, Rhythm, No Murmur Assessment/Plan Assessment/Plan Assess & Plan/Chief Complaint Acute CVA. Patient comfort care. Right sided paralysis. Elevated troponin. Dementia.. . 10/12/2019. HEENT CVA. Patient comfort care. Right sided paralysis. Dementia. Hypertension patient getting weaker Clinical Quality Measures Admission Status Admission Dx Acute CVA. Right sided paralysis. AMS. Malignant hypertension. Anemia. Elevated troponin. Left MCA thrombus. CHF. Dementia Right sided weakness. fall DVT/VTE Risk/Contraindication: Risk Factor Score Per Nursin RFS Level Per Nursing on Admit: 4+=Very High BUD CONNELLY DO Oct 12, 2019 07:13
--- NOTE | 2019-10-12 09:41 | NUR ---
PALLIATIVE CARE RN in to see the patient. His son is present on arrival and pt's sister arrived during the visit. Patient is declining as evidenced by increased unresponsiveness, no longer moving extremities. We discussed discharge plan for patient. Due to his unchanged ears it is expected that the patient is not immanently passing. He could have 2 days to a week life expectancy. Family would like a referral sent to [facility] for consideration. No other needs at this time.
[2019-10-12] MEDS: morphine INJ 4 MG/ML 1 ML (VIAL/SYRINGE) IV PRN (12:44)
--- NOTE | 2019-10-12 15:38 | NUR ---
DISCHARGE PLANNING: Received word that patient has been accepted to [facility] for tomorrow with [facility]. I have not yet sent a referral to [facility]. Will wait to see if patient is more declined in the morning and talk to Derek about discharge.
--- NOTE | 2019-10-12 16:31 | NUR ---
Palliative Care RN in to see patient. He is unchanged from earlier. Reported to family that I did get a bed at [facility]. Explained that I will wait to make final decision on that till morning assessment and discussion with family. At this tie is not eliminant .
[2019-10-13] MEDS: morphine INJ 4 MG/ML 1 ML (VIAL/SYRINGE) IV PRN ×2 (04:45→11:36)
--- NOTE | 2019-10-13 08:00 | Progress Note ---
Subjective Time Seen by a Provider: 07:53 Subjective/Events-last exam Patient the same. Patient hospice. Patient to be transferred to via [facility] today Objective Exam Vital Signs Date Time Temp Pulse Resp B/P (MAP) Pulse Ox O2 Delivery O2 Flow Rate FiO2 10/12/19 20:30 Room Air 10/12/19 18:23 Room Air 10/12/19 09:30 Room Air I & O 10/13/19 07:00 Intake Total 0 ml Output Total 640 ml Balance -640 ml Capillary Refill : Less Than 3 SecondsLess Than 3 Seconds General Appearance: No Apparent Distress Respiratory: Lungs Clear, No Accessory Muscle Use, No Respiratory Distress Cardiovascular: Regular Rate, Rhythm, No Murmur Assessment/Plan Assessment/Plan Assess & Plan/Chief Complaint Acute CVA. Patient comfort care. Right sided paralysis. Elevated troponin. Dementia.. . 10/12/2019. HEENT CVA. Patient comfort care. Right sided paralysis. Dementia. Hypertension patient getting weaker. . 10/13/2019. Patient to be transferred to [facility]. Patient to be on hospice Clinical Quality Measures Admission Status Admission Dx Acute CVA. Right sided paralysis. AMS. Malignant hypertension. Anemia. Elevated troponin. Left MCA thrombus. CHF. Dementia Right sided weakness. fall DVT/VTE Risk/Contraindication: Risk Factor Score Per Nursin RFS Level Per Nursing on Admit: 4+=Very High BUD CONNELLY DO Oct 13, 2019 08:00
--- NOTE | 2019-10-13 08:04 | Discharge Summary ---
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 (2) Dementia Status: Chronic (3) Need for comfort care Status: Acute (4) Right hemiparesis Status: Acute Hospital Course Date of Admission: Oct 08, 2019 at 14:52 Admission Diagnosis : Family Physician/Provider: Yordan Connelly DO Date of Discharge: 10/13/19 Discharge Diagnosis: [ ] Hospital Course: [ ] Labs and Pending Lab Test: Home Meds Active Reported Verapamil HCl 120 Mg Tablet 120 Mg PO BID Lisinopril 40 Mg Tablet 40 Mg PO BID Furosemide 40 Mg Tablet 40 Mg PO DAILY Metformin HCl ER (Metformin HCl) 500 Mg Tab.er.24h 500 Mg PO BIDAC Assessment/Pt Instructions Terminal Discharge Physical Examination Vital Signs Vital Signs Date Time Temp Pulse Resp B/P (MAP) Pulse Ox O2 Delivery O2 Flow Rate FiO2 10/12/19 20:30 Room Air 10/10/19 08:00 98 2.00 10/08/19 16:57 37.0 88 15 219/87 (131) Allergies: Coded Allergies: No Known Drug Allergies (Unverified , 10/15/11) Discharge Summary Date of Admission Oct 08, 2019 at 14:52 Date of Discharge Discharge Date: Oct 13, 2019 Comfort Measures/ End of Life Care: Comfort Measures Discharge Diagnosis (1) CVA (cerebral vascular accident) Status: Acute Qualifiers: Qualified Codes: 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
--- NOTE | 2019-10-13 08:47 | NUR ---
FINAL DISCHARGE PLANNING W PALLIATIVE CARE: On rounds with Dr. Reed today. Assessment is for no significant decline since yesterday. Will discharge today to [facility]. Non-Emergent transport by EMS due to unresponsive state and bed bound.
--- NOTE | 2019-10-13 10:10 | NUR ---
Report called to Phil JIMENEZ at [facility]. EMS called for transport to [facility].
[2019-10-13] MEDS: LORazepam INJ 2 MG/ML (ATIVAN) VIAL IVP PRN (10:57)
--- NOTE | 2019-10-13 11:40 | NUR ---
[facility] here to transport patient to [facility].
[2019-10-13 11:42] VITALS: BP 219/87
== END 2019-10-13 11:43 | disposition hospice, inpatient (51) | DRG 951 ==
LOC: ER 13:16 → EDUNIT# 13:16 → 4TH 14:52
PROVIDERS: ADMIT Family Medicine; ATTEND Family Medicine
DX: Z51.5 Encounter for palliative care (principal); I63.312 Cerebral infarction due to thrombosis of left middle cerebral artery; G81.91 Hemiplegia, unspecified affecting right dominant side; R41.82 Altered mental status, unspecified; R29.722 NIHSS score 22; E11.9 Type 2 diabetes mellitus without complications; F03.90 Unspecified dementia, unspecified severity, without behavioral disturbance, psychotic disturbance, mood disturbance, and anxiety; Z66 Do not resuscitate; E87.6 Hypokalemia; D64.9 Anemia, unspecified; R79.89 Other specified abnormal findings of blood chemistry; I11.0 Hypertensive heart disease with heart failure; I50.9 Heart failure, unspecified; Z79.84 Long term (current) use of oral hypoglycemic drugs
CPT/HCPCS: 0042T; 36415; 51702; 70450; 70496; 70498; 71045; 72125; 80053; 81000; 82962; 84484; 85007; 85027; 85379; 85610; 85730; 93005; 93041; 96374; 96375